=== PATIENT | female | born 2000 | race Two or more races ===

== ENCOUNTER 2020-07-09 13:16 | Emergency (ER) | payer MEDICAID ==
[~2020-07-09] VITALS: Ht 154.9 cm; Wt 48.1 kg
[2020-07-09 13:28] VITALS: BP 109/74
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
--- NOTE | 2020-07-09 13:44 | NUR ---
ED Nurse Note: Xray at bedside.
[2020-07-09] MEDS ORDERED: Methocarbamol 500mg tab ORAL ONE (13:45)
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
[2020-07-09] MEDS ORDERED: IBUPROFEN600 M1 ORAL (14:00)
[2020-07-09] MEDS ORDERED: ROBAXIN-500MG ORAL (14:00)
[2020-07-09 14:15] VITALS: BP 111/69
--- NOTE | 2020-07-09 14:15 | NUR ---
ED Nurse Note: Pt cleared by ERPA for discharge. DC instructions/prescription was given and explained to pt and verbalized understanding of teachings. All medical deviecs such as ID band removed. Pt is AAO x4, ambulatory and left with all personal belongings.
--- NOTE | 2020-07-09 14:17 | Diagnostic Imaging Report ---
Indication: Trauma, pain Technique: 3 views of the right shoulder Comparison: none Findings: No acute fracture. No dislocation. Joint spaces are preserved Impression: Negative
--- NOTE | 2020-07-09 15:38 | Diagnostic Imaging Report ---
Indication: Trauma, pain Technique: 3 views of the right knee Comparison: None Findings: Bony alignment is normal. No acute fracture. No dislocation. No suprapatellar effusion. Joint spaces are preserved Impression: Negative
== END 2020-07-09 14:15 | disposition home or self-care (01) ==
LOC: EMR 14:00
DX: S46.911A Strain of unspecified muscle, fascia and tendon at shoulder and upper arm level, right arm, initial encounter (principal); S80.01XA Contusion of right knee, initial encounter; V43.62XA Car passenger injured in collision with other type car in traffic accident, initial encounter; Y92.410 Unspecified street and highway as the place of occurrence of the external cause
CPT/HCPCS: 73030; 73562; Z7502; 99284